=== PATIENT | male | born 1985 | race Caucasian/White ===

== ENCOUNTER 2017-04-09 11:07 | Emergency (ER) | payer OTHER ==
[~2017-04-09] VITALS: Ht 185.4 cm; Wt 75.0 kg
[2017-04-09 11:56] VITALS: BP 136/89
[2017-04-09] MEDS ORDERED: FLUORESCEIN OPHTHALMIC 1 MG STRIP ONE (12:19)
[2017-04-09] MEDS ORDERED: PROPARACAINE OPHTH 0.5%, 15ML ONE (12:19)
[2017-04-09] MEDS ORDERED: FLUORESCEIN OPHTHALMIC 1 MG STRIP RIGHTEYE ONE (12:30)
[2017-04-09] MEDS ORDERED: PROPARACAINE OPHTH 0.5%, 15ML RIGHTEYE ONE (12:30)
== END 2017-04-09 12:42 | disposition home or self-care (01) ==
LOC: ED 12:36
DX: B02.9 Zoster without complications (principal)
CPT/HCPCS: 99283

== ENCOUNTER 2017-07-17 23:04 | Emergency (ER) | payer OTHER ==
[~2017-07-17] VITALS: Ht 188 cm; Wt 77.8 kg
[2017-07-18 00:12] VITALS: BP 133/90
== END 2017-07-18 00:18 | disposition home or self-care (01) ==
LOC: ED 23:37
DX: L73.9 Follicular disorder, unspecified (principal)
CPT/HCPCS: 99282